=== PATIENT | male | born 1985 | race Caucasian/White ===

== ENCOUNTER 2023-04-23 00:21 | Day surgery (SDC) | payer OTHER, SELFPAY ==
[2023-04-18 10:56] VITALS: BMI 33.2
--- NOTE | 2023-04-18 11:00 | PC.NURSE ---
Report to the Outpatient Waiting Room, entrance under the green pavilion located off [facility], at time 1100 on date 04/23/23. Planned Procedure Time: 1300. Time changes happen often and if your time is changed the preop area will call you the afternoon before. - You and your visitor will be asked to self-screen and do not enter if you have any COVID symptoms. - A mask is optional within the hospital at this time. Patients may have clear liquids (water, carbonated beverages, clear teas, apple juice) until 3 hours prior to surgery with a maximum of 20 ounces. - No food from midnight until time of surgery Take the following medications with a SIP of water the morning of surgery: N/A DO NOT STOP ANY OF YOUR OTHER PRESCRIPTION MEDICATIONS PRIOR TO SURGERY ?EXCEPT THE FOLLOWING Medications to discontinue per physician: N/A Date to take last dose: N/A Please no make-up, nail sami, hairspray, perfume, deodorant, or body powder the day of surgery. No jewelry (including any body piercings) or valuables the day of surgery, leave them at home. Please take a shower or bath the night before, or the morning of, surgery with an antibacterial soap (HIBICLENS). Wear comfortable, loose fitting clothing. Children are encouraged to wear pajamas. - Jewelry must be removed prior to entering the operating room. Rings and piercings that are not removed may be cut off. - The hospital will not accept responsibility for valuables. - Please leave all valuables, including medications, at home the day of surgery. If you are going home after surgery, a licensed heavy truck driver must drive you home. - NO public transportation without another adult if you receive anesthesia. - We recommend that an adult stay with you for 24 hours following discharge. - We also recommend that you do not drive, make important decision, drink alcoholic beverages, or take any drugs that were not prescribed by your health care provider for at least 24 hours after your discharge time. Follow any additional instructions given to you from your surgeon. If you or anyone in your household have experienced Covid symptoms in the past week, please notify your surgeon or the nurse liaison at the phone number below for possible testing. Telephone instructions given to PT - JOSE YOU and asked if any additional questions and then verbalized understanding. Patient advised to call surgeon office or pre surgery nurse liaison [phone] if any additional questions.
[2023-04-23] VITALS (8 sets, daily range): BP systolic 109–131; BP diastolic 66–84; PULSE 48–74; RESP 10–20; TEMP 36.7–37; O2SAT 97–100
--- NOTE | 2023-04-23 09:41 | WPDHPUPDATE1 ---
History and Physical Update Update Date/Time: 04/23/23 09:41 History and Physical has been reviewed, including an updated exam of the patient. There are NO changes in the patient's condition. Risks, benefits, and alternatives have been discussed and questions answered. Patient agrees to proceed with procedure.
[2023-04-23] MEDS: LACTATED RINGERS 1,000 ML 30 ML IV CONT ×2 (11:30→14:16)
--- NOTE | 2023-04-23 11:41 | P.PNAN_ITS ---
Anes - Initial Pre Proc Eval Procedure: Operation Date: 04/23/23 13:00 Proposed Procedures p Robotic Laparoscopic Right Inguinal Hernia Repair - Seun Brandon MD Date/Time: 04/23/23 11:41 Surgeon: Seun Brandon MD Pre Op Diagnosis: right inguinal hernia Patient Data Age: 38 Gender: M Height: 1.87 m Weight: 115.7 kg Allergies Allergy/AdvReac Type Severity Reaction Status Date / Time No Known Allergies Allergy Verified 04/18/23 10:56 Home Medications Medication Instructions Recorded Confirmed Type No Home Medications 03/24/23 04/18/23 History Patient hx anesthesia problems: none Family hx anesthesia problems: none Results Review: All pre-operative results and documents have been reviewed as part of the pre- operative evaluation. [facility] Past Medical History Medical History (Updated 03/24/23 @ 14:08 by Elyssa Stephenson) Left inguinal hernia Thyroid disease Surgical History Surgical History (Updated 03/24/23 @ 14:07 by Elyssa Stephenson) History of left inguinal hernia repair Family History Family History (Updated 03/24/23 @ 14:07 by Elyssa Stephenson) Father Chronic leukemia Other Hypertension Social History Social History (Updated 03/24/23 @ 14:08 by Elyssa Stephenson) Smoking packs per day: 0.5 Smoking cigarettes per day: 10.0 Years smoked: 8 Smoking pack-years: 4.00 Smoking status: Former smoker Tobacco type: cigarettes Smoking end date: 08/25/15 Alcohol intake: current Drinks per week: 2 Alcohol use details: Social alcohol use Substance use: never Substance use type: does not use Living arrangements: with family Spiritual care concerns: No Anes - Eval Final PreProcedure Day of Procedure 04/23/23 11:41 Patient weight: obese Heart: regular rate and rhythm Lungs: clear to auscultation Airway: Mallampati scale class II Neurological: alert and oriented Last oral intake: >/= 8 hours ASA classification: II Emergent: no Anesthetic plan: proceed Anesthesia type and monitoring: general ETT and standard monitoring Results Review: All pre-operative results and documents have been reviewed as part of the pre- operative evaluation. Informed Consent: The patient's anesthetic plan and its attendant risks and benefits were discussed with the patient/family/POA. Questions were solicited and answers provided to the satisfaction of the patient/family/POA.
[2023-04-23] MEDS: ACETAMINOPHEN 500 MG TABLET 1000 MG PO (12:10)
[2023-04-23] MEDS: KETOROLAC 15 MG/ML VIAL (*BKC) IV PUSH (12:10)
[2023-04-23] MEDS: ceFAZolin 2 GM/D5W 50 ML 2 GM/50 ML BAG IVPB (12:22)
[2023-04-23] MEDS: BUPIVACAINE/EPINEPHRINE 0.5% 50 ML VIAL 10 ML INFILTRATE (13:20)
--- NOTE | 2023-04-23 14:26 | W.PM.PROC2 ---
Procedure Note - Detailed Date of Procedure 04/23/23 Pre-op Diagnosis right inguinal hernia Post-op Diagnosis Same Procedure Performed Robotic laparoscopic repair right inguinal hernia with mesh Surgeon Seun Brandon MD [facility] Anesthesia General and Local (0.5% Marcaine with epinephrine) Indications Patient has been noticing a right groin bulge poor at least a month. It is painful when he coughs or has heavy exertion. He was seen in the office and found to have a right inguinal hernia. He is taken to surgery now for robotic laparoscopic repair. Findings Patient had a direct right inguinal hernia. Description of Procedure Patient was taken to surgery and induced into general anesthesia. The abdomen and genitalia were prepped and draped. The initial trocar was placed in the right side of the abdomen. Local was infiltrated and an incision was made. The varies needle was introduced and insufflation was carried out. Once the abdomen was adequately distended, the varies needle was removed. An applied Medical port 5 mm optical trocar was then placed. We reviewed the hernia and then under direct visualization placed an 8 mm robotic trocar in the midline and another 8 mm robotic trocar on the left side of the upper abdomen. We then switched the camera and removed the 5 mm port, replacing it with another 8 mm robotic port. Patient was placed in Trendelenburg. The robot was brought into the field. The camera was docked and targeted. Two other robotic arms were docked. The instruments were placed and positioned. The surgeon then went to the robotic console. A peritoneal flap was created over the anterior aspect of the inguinal anatomy. The flap was developed from anterior to posterior. Medially dissection was carried down onto the rectus muscle and then down to the pubis. We continued the dissection over to the left rectus muscle and across the midline. Cautery was used for hemostasis. I then went back to the lateral aspect of the peritoneal flap and dissected the flap posteriorly. Peritoneum was reduced from the internal ring and then carefully dissected free of the cord structures. This left the direct hernia pretty much isolated. The hernia sac was reduced from the direct hernia. Transversalis fascia was seen it was carefully dissected off the hernia sac. Once the hernia sac was dissected free, I continued to dissect the peritoneal flap from the cord structures and from the more medial posterior structures of the inguinal canal. Dissection was carried at least a couple of cm posterior to the pubis and Dewayne's ligament. Dissection was carried 4 cm posterior to the internal ring and the cord structures were made free of the peritoneum. Once I had adequate space for the mesh, a 17 x 12 3DMax mid mesh for the right side was introduced into the abdominal cavity. The mesh was positioned appropriately over the inguinal canal structures. 3-0 Vicryl suture were then used. The mesh was sutured to the pubis and then to the anterior abdominal wall both medial and lateral to the inferior epigastric vessels. I checked the mesh position again. It looked to be appropriate with no sign of peritoneum rolling up under the mesh. I then used a 2 0 V lock and closed the peritoneal flap. The repair was reviewed and appeared to be satisfactory. The Vicryl and V lock suture needles were then removed. The instruments and camera were removed. We evacuated CO2 and undocked the robot. The trocars removed. The skin wounds were closed with subcuticular 4-0 Monocryl skin suture. The wounds were dressed with Exofin surgical adhesive. The patient was awakened and taken to recovery in good condition. A scrotal support was placed in the operating room prior to transfer. Sponge needle counts were correct x2. Implants 12 x 17 cm right-sided 3DMax mid Estimated Blood Loss -5 Drains No Packing No Pathology None sent Complications No immediate
[2023-04-23] MEDS: oxyCODONE HCL (*CRX) 5 MG TAB IR PO (15:41)
== END 2023-04-23 16:20 | disposition home or self-care (01) ==
PROVIDERS: PCP Family Medicine; Visit Provider Surgery
PROC: 8E0Y4CZ Robotic Assisted Procedure of Lower Extremity, Percutaneous Endoscopic Approach (ICD-10-PCS; CPT 49650; principal; 2023-04-23 13:00)
DX: K40.90 Unilateral inguinal hernia, without obstruction or gangrene, not specified as recurrent (principal); Z87.891 Personal history of nicotine dependence; E66.9 Obesity, unspecified; Z68.33 Body mass index [BMI] 33.0-33.9, adult
CPT/HCPCS: 49650; S2900; 36415; 86850; 86900; 86901; A9270; C1781; J0330; J0461; J0690; J1100; J1885; J2250; J2405; J2704; J3010; J7120